=== PATIENT | female | born 2005 | race Hispanic/Latino ===

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

== ENCOUNTER 2024-02-25 14:03 | Emergency (ER) | payer OTHER ==
[~2024-02-25] VITALS: Ht 170.2 cm; Wt 108.4 kg
[~2024-02-25 14:03] MED LIST changes: +CLIN-141 PO; +IBUP-2077 PO
[2024-02-25 15:44] LABS: APPEARANCE,URINE CLOUDY (CLEAR); BILIRUBIN,URINE NEGATIVE (NEGATIVE); COLOR,URINE YELLOW (YELLOW); GLUCOSE, URINE (UA) NEGATIVE (NEGATIVE); KETONES,URINE NEGATIVE (NEGATIVE); LEUKOCYTE ESTERASE ,URINE NEGATIVE Leu/uL (NEGATIVE); NITRATE,URINE NEGATIVE (NEGATIVE); OCCULT BLOOD,URINE LARGE (NEGATIVE); PH,URINE 5.5 (5.0-8.0); PROTEIN,URINE 20 mg/dL (NEGATIVE); UROBILINOGEN,URINE 0.2 mg/dL (0.2-1.0)
[2024-02-25 15:51] LABS: ADD UA MICROSCOPIC YES
[2024-02-25 15:53] LABS: HCG,QUALITATIVE URINE NEGATIVE (NEGATIVE)
[2024-02-25 15:56] LABS: BACTERIA,URINE RARE /HPF (None Seen); MUCUS,URINE RARE LPF (None Seen); RBC,URINE TNTC /HPF (0-1); SQUAMOUS EPITHELIAL CELL,UR RARE /HPF (0-2); UNCLASSIFIED CRYSTAL 3 /HPF (None Seen)
[2024-02-25 16:19] LABS: BASOPHILS # (AUTO) 0.05 K/uL (0.00-0.20); BASOPHILS % (AUTO) 0.5 % (0.0-5.0); EOSINOPHILS # (AUTO) 0.17 K/uL (0.00-0.70); EOSINOPHILS % (AUTO) 1.7 % (0.0-8.0); HEMATOCRIT 36.1 % (36-48); IMMATURE GRANULOCYTE ABSOLUTE 0.04 K/uL (0-1); LYMPHOCYTES # (AUTO) 2.3 K/uL (1.0-4.8); LYMPHOCYTES % (AUTO) 23.7 % (21.0-51.0); MEAN CORPUSCULAR HEMOGLOBIN 25.4 pg (27.0-33.0); MEAN CORPUSCULAR HGB CONC 32.1 g/dL (32.0-36.0); MEAN CORPUSCULAR VOLUME 79.2 fL (80-100); MONOCYTES # (AUTO) 0.5 K/uL (0.1-1.0); MONOCYTES % (AUTO) 5.4 % (3.0-13.0); NEUTROPHILS # (AUTO) 6.8 K/uL (1.8-7.7); NEUTROPHILS % (AUTO) 68.3 % (40.0-77.0); PLATELET COUNT (AUTO) 329 K/uL (130-400); RED BLOOD CELL COUNT(AUTO) 4.56 MIL/uL (4.00-5.50); RED CELL DISTRIBUTION WIDTH 14.6 % (11.0-15.5); WHITE BLOOD COUNT (AUTO) 9.9 K/uL (4.8-10.8)
[2024-02-25 16:29] LABS: CREATININE 0.7 mg/dL (0.5-1.0); POTASSIUM 3.6 mmol/L (3.5-5.1)
[2024-02-25 18:13] VITALS: BP 134/76; PULSE 71; RESP 18; O2SAT 99
[2024-02-25] MEDS ORDERED: IBUP-2070 PO (18:14)
== END 2024-02-25 18:13 | disposition home or self-care (01) ==
LOC: EDH 14:03
DX: N94.6 Dysmenorrhea, unspecified (principal); Z79.899 Other long term (current) drug therapy; Z98.890 Other specified postprocedural states
CPT/HCPCS: 36415; 76856; 80048; 81001; 81025; 83735; 85025

== ENCOUNTER 2024-09-27 21:06 | Emergency (ER) | payer SELFPAY ==
[~2024-09-27] VITALS: Ht 170.2 cm; Wt 110.9 kg
[2024-09-27 21:24] LABS: BASOPHILS # (AUTO) 0.06 K/uL (0.00-0.20); BASOPHILS % (AUTO) 0.6 % (0.0-5.0); EOSINOPHILS # (AUTO) 0.22 K/uL (0.00-0.70); EOSINOPHILS % (AUTO) 2.2 % (0.0-8.0); HEMATOCRIT 34.1 % (36-48); IMMATURE GRANULOCYTE ABSOLUTE 0.03 K/uL (0-1); LYMPHOCYTES # (AUTO) 3.4 K/uL (1.0-4.8); LYMPHOCYTES % (AUTO) 34.4 % (21.0-51.0); MEAN CORPUSCULAR HEMOGLOBIN 25.7 pg (27.0-33.0); MEAN CORPUSCULAR HGB CONC 32.8 g/dL (32.0-36.0); MEAN CORPUSCULAR VOLUME 78.2 fL (80-100); MONOCYTES # (AUTO) 0.7 K/uL (0.1-1.0); NEUTROPHILS # (AUTO) 5.4 K/uL (1.8-7.7); NEUTROPHILS % (AUTO) 55.5 % (40.0-77.0); PLATELET COUNT (AUTO) 338 K/uL (130-400); RED BLOOD CELL COUNT(AUTO) 4.36 MIL/uL (4.00-5.50); RED CELL DISTRIBUTION WIDTH 13.3 % (11.0-15.5); WHITE BLOOD COUNT (AUTO) 9.8 K/uL (4.8-10.8)
[2024-09-27 21:33] LABS: CREATININE 0.8 mg/dL (0.5-1.0); POTASSIUM 3.4 mmol/L (3.5-5.1)
[2024-09-27 21:38] LABS: INR 0.98 (0.85-1.15); PROTHROMBIN TIME 10.6 SEC (9.6-11.6)
[2024-09-27 21:39] LABS: PARTIAL THROMBOPLASTIN TIME 29.6 SEC (26.3-35.5)
--- NOTE | 2024-09-27 21:42 | ERN ---
ED Note History of Present Illness Stated Complaint: CHEST PAIN Chief Complaint: Chest Pain Time Seen by MD: 21:17 Time Seen by Midlevel: 21:17 Dictation: Patient is a 19-year-old female with no past medical history who presents to the emergency department with complaints of left-sided chest pain onset 8:00 p.m.. Patient reports she has been having on and off episodes for two months. Denies any nausea, vomiting, diarrhea. Patient reports pain worse with movement. Allergies: Coded Allergies: No Known Allergies (Unverified Allergy, Unknown, 05/18/18) Home Meds Active Scripts Ibuprofen (Ibuprofen) 600 Mg Tablet, 600 MG PO Q6H PRN for PAIN for 3 Days, #12 TAB 0 Refills Prov:SHAYAN CARNES NP 02/25/24 Ibuprofen (Ibuprofen 800 mg Tab) 800 Mg Tab, 800 MG PO Q8H PRN for fever or pain, #30 TAB 0 Refills Prov:DYLAN DOYLE NP 12/04/23 Clindamycin HCl (Clindamycin HCl) 300 Mg Capsule, 1 CAP PO QID for 10 Days, #40 CAP 0 Refills Prov:DYLAN DOYLE DIAGNOSTIC CARDIAC SONOGRAPHER 12/04/23 Ibuprofen (Ibuprofen) 600 Mg Tablet, 600 MG PO Q6H PRN for PAIN, #15 TAB Prov:MONSERRAT ROSENTHAL 03/07/23 Sulfamethoxazole/Trimethoprim (Bactrim Ds Tablet) 1 Each Tablet, 1 TAB PO BID for 7 Days, #14 TAB 0 Refills Prov:MONSERRAT ROSENTHAL 03/07/23 Dexamethasone (Maxidex) 5 Ml Drops.susp, 5 ML OP BID for 7 Days, #30 DROP Prov:ZEYNEP GOLDBERG MD 02/22/22 Past Medical History Past Medical History: No Pertinent History Surgical History: Other Surgical History Other: RT OVARIAN SX Family History: Negative Social History: Negative, Lives with family History: Not Applicable LMP: Sep 20, 2024 RN Note Reviewed/Agreed w/PFSH: Yes Review of System Dictation Constitutional: Negative for fever,chills, and weight loss Eyes: Negative for injury, pain,redness, and discharge ENT: Negative for injury,pain or swelling Cardiovascular: Negative for chest pain, palpitations, and edema Respiratory: Negative for shortness of breath, cough, and wheezing, Abdomen/GI: Negative for abdominal pain, nausea, vomiting, diarrhea, and constipation Back: Negative for injury and pain : Negative for injury, bleeding and discharge MS/Extremity: Negative for injury and deformity Skin: Negative for rash, and discoloration Neuro: Negative for headache, weakness, numbness, tingling, and seizure Psych: Negative for suicide ideation, homicidal ideation, and hallucinations Initial Vital Sign VS Vital Signs Date Time Temp Pulse Resp B/P (MAP) Pulse Ox O2 Delivery O2 Flow Rate FiO2 09/27/24 21:07 98.8 74 20 124/92 98 Room Air 09/27/24 21:49 0 21 Physical Exam Dictation Vital Signs reviewed General Appearance: Alert, oriented x 3, no acute distress, well developed, nourished. Head and Face: non-traumatic. Eyes: PERRL, pink conjunctivas, eyelid no trauma, anterior chamber with arcus senilis. Ears: Pinnas intact and no signs of trauma or erythema ear canals clear and no discharge TM no erythema Nose: No discharge, no bleeding. Oropharynx: Mouth normal, tongue pink. pharynx clear,no erythema, tonsils no exudates, no abscesses noted, mucous membrane moist Neck: Supple, non-tender, no thyromegaly, no masses, no JVD, no bruits Breast:Deferred Chest: Tenderness to left chest, no crepitus, no paradoxical movement, no retractions Lungs:Clear, well-ventilated, symmetric, no rales, no wheezing, no rhonchi, no stridor, good breath sounds bilaterally Heart: Regular rate, regular rhythm, no murmur, no gallops Vascular: no peripheral edema, Abdomen: Soft, positive bowel sounds, nondistended, no guarding, nontender, no rebound, no masses no hepatomegaly, no splenomegaly, no Jenkins's sign, no hernias. Rectal: Deferred Genital: Deferred Neurological: Normal speech, motor function intact, sensory function intact Musculoskeletal: Neck nontender, full range of motion, back nontender, full range of motion, Extremities: nontender, full range of motion Skin: Color pink, dry, no turgor, no rash, no lacerations, no abrasions, no contusions. Lymphatic: Deferred Results (Laboratory/Radiology) Laboratory/Radiology Laboratory Tests Test 09/27/24 21:16 09/27/24 21:40 09/27/24 22:19 White Blood Count 9.8 K/uL (4.8-10.8) Red Blood Count 4.36 MIL/uL (4.00-5.50) Hemoglobin 11.2 g/dL (12.0-16.0) L Hematocrit 34.1 % (36-48) L Mean Corpuscular Volume 78.2 fL (80-100) L Mean Corpuscular Hemoglobin 25.7 pg (27.0-33.0) L Mean Corpuscular Hemoglobin Concent 32.8 g/dL (32.0-36.0) Red Cell Distribution Width 13.3 % (11.0-15.5) Platelet Count 338 K/uL (130-400) Mean Platelet Volume 8.9 fL (7.5-10.5) Immature Granulocyte % (Auto) 0.3 % (0-1) Neutrophils (%) (Auto) 55.5 % (40.0-77.0) Lymphocytes (%) (Auto) 34.4 % (21.0-51.0) Monocytes (%) (Auto) 7.0 % (3.0-13.0) Eosinophils (%) (Auto) 2.2 % (0.0-8.0) Basophils (%) (Auto) 0.6 % (0.0-5.0) Neutrophils # (Auto) 5.4 K/uL (1.8-7.7) Lymphocytes # (Auto) 3.4 K/uL (1.0-4.8) Monocytes # (Auto) 0.7 K/uL (0.1-1.0) Eosinophils # (Auto) 0.22 K/uL (0.00-0.70) Basophils # (Auto) 0.06 K/uL (0.00-0.20) Absolute Immature Granulocyte (auto 0.03 K/uL (0-1) Nucleated Red Blood Cells 0.0 % (0.0-0.19) Prothrombin Time 10.6 SEC (9.6-11.6) Prothromb Time International Ratio 0.98 (0.85-1.15) Activated Partial Thromboplast Time 29.6 SEC (26.3-35.5) Sodium Level 137 mmol/L (136-145) Potassium Level 3.4 mmol/L (3.5-5.1) L Chloride Level 101 mmol/L (101-111) Carbon Dioxide Level 28 mmol/L (21-32) Blood Urea Nitrogen 10 mg/dL (7-18) Creatinine 0.8 mg/dL (0.5-1.0) Glomerular Filtration Rate Calc 108 mL/min (>90) Random Glucose 94 mg/dL (70-105) Total Calcium 8.6 mg/dL (8.5-10.1) Total Creatine Kinase 62 U/L (21-232) Troponin I High Sensitivity < 4 ng/L (4-50) L B-Type Natriuretic Peptide 24 pg/mL (0-100) Troponin I < 0.05 ng/mL (0.00-0.05) Urine Color LIGHT-YELLOW (YELLOW) Urine Appearance CLEAR (CLEAR) Urine pH 6.5 (5.0-8.0) Urine Specific [place] 1.023 (1.001-1.031) Urine Protein NEGATIVE mg/dL (NEGATIVE) Urine Glucose (UA) NEGATIVE mg/dL (NEGATIVE) Urine Ketones NEGATIVE mg/dL (NEGATIVE) Urine Occult Blood NEGATIVE (NEGATIVE) Urine Nitrate NEGATIVE (NEGATIVE) Urine Bilirubin NEGATIVE mg/dL (NEGATIVE) Urine Urobilinogen 0.2 mg/dL (0.2-1.0) Urine Leukocyte Esterase NEGATIVE Sixto/uL Urine HCG, Qualitative NEGATIVE (NEGATIVE) REASON: CHEST PAIN ORDERING PHYSICIAN: ESCOBAR TROTTER MD PROCEDURE: CXR1VW - CHEST 1VW CHEST 1VW HISTORY: Chest pain COMPARISON: None FINDINGS: A frontal projection of the chest was obtained. No acute pulmonary infiltrates is seen. The heart is normal in size. Prominent interstitial markings are seen. No evidence of aortic calcification is seen. IMPRESSION: 1. No acute pulmonary infiltrate is seen. Labs Reviewed?: Yes EKG: (+) NSR, (+) rhythm (Sinus rhythm) EKG Comment: EKG 09/27/20242109 ventricular rate 72, regular rate and rhythm, normal sinus rhythm, no STEMI., abnormal T wave anterior leads ED Course ED Course Orders Procedure Category Date Status Time Vital Signs Per CPOE 09/27/24 Transmitted Routine 21:08 B-Type Natriuretic LAB 09/27/24 Complete Peptide 21:08 Chest 1vw RAD 09/27/24 Resulted 21:08 12 Lead Ekg Tracing- EKG 09/27/24 Logged Technical 21:08 Oxygen By Nc/Pulse Ox CPOE 09/27/24 Transmitted 21:08 Maintain Iv CPOE 09/27/24 Transmitted 21:08 Iv Insertion CPOE 09/27/24 Transmitted 21:08 Cardiac Monitoring CPOE 09/27/24 Transmitted 21:08 Pulse Oximetry With CPOE 09/27/24 Transmitted Vs And Prn 21:08 Cbc With Differential LAB 09/27/24 Complete 21:08 Activity: Br W/Brp CPOE 09/27/24 Transmitted With Assist 21:08 Creatine Kinase, Total LAB 09/27/24 Complete 21:08 Urinalysis Profile LAB 09/27/24 Complete 21:08 Troponin Poc Order LAB 09/27/24 Complete Only 21:08 Bedside Troponin-I LAB.ER 09/27/24 Complete (Poc) 21:08 Basic Metabolic Panel LAB 09/27/24 Complete 21:08 Pt And Ptt LAB 09/27/24 Complete 21:08 Troponin I High LAB 09/27/24 Complete Sensitivity 21:08 ,Urine Test LAB 09/27/24 Complete 21:08 Acetaminophen 500mg PHA 09/27/24 Complete Tab (Tylenol 500mg T 22:00 Ketorolac 60mg/2ml PHA 09/27/24 Complete (Toradol 60mg/2ml) 23:30 Current Medications Medications (Trade) Dose Ordered Sig/Lorrie Route PRN Reason Start Time Stop Time Status Last Admin Dose Admin Acetaminophen (TYLenol 500MG TAB) 1,000 mg ONCE ONCE PO 09/27/24 22:00 09/27/24 22:01 DC 09/27/24 22:06 Ketorolac Tromethamine (toRADol 60MG/ 2ML) 60 mg ONCE ONCE IM 09/27/24 23:30 09/27/24 23:31 DC 09/27/24 23:52 Vital Signs Date Time Temp Pulse Resp B/P (MAP) Pulse Ox O2 Delivery O2 Flow Rate FiO2 09/28/24 00:06 98.2 61 20 124/79 10 Room Air* 0 09/27/24 21:49 98.2 71 20 135/92 10 Room Air* 0 09/27/24 21:07 98.8 74 20 124/92 98 Room Air HEART Score Response (Comments) Value History: Low suspicion (0) 0 EKG: Normal 0 Age: < 45yrs (0) 0 Risk Factors: No known risk factors (0) 0 Initial Troponin: Normal limit (0) 0 HEART Score Risk: Low Risk for MACE (1-3) Total 0 Medical Decision Making MDM Patient is a 19-year-old female with no past medical history who presents to the emergency department with complaints of left-sided chest pain onset 8:00 p.m.. Patient reports she has been having on and off episodes for two months. Denies any nausea, vomiting, diarrhea. Patient reports pain worse with movement. See showed no leukocytosis, mild microcytic anemia, chemistry showed mild hypokalemia, negative troponins x2. Chest x-ray unremarkable. Patient reported relieved in pain with medication. Will be discharged to follow up with primary doctor. Differential diagnosis: ACS, anxiety, costochondritis, electrolyte imbalance, tachyarrhythmia Need for hospitalization: Patient does not meet criteria for hospitalization. There are no social concerns with this patient. DX & DISP Disposition: Discharge Departure Impression: Primary Impression: Costochondritis Additional Impressions: Chest pain with low risk for cardiac etiology, Hypokalemia, Anemia Condition: Stable Additional Instructions: FOLLOW-UP WITH PRIMARY CARE PROVIDER IN 1 TO 2 DAYS. TAKE MEDICATIONS DIRECTED HERE IN THE EMERGENCY ROOM. OKAY TO CONTINUE HOME MEDICATIONS UNLESS OTHERWISE DISCUSSED DURING YOUR VISIT IN THE EMERGENCY ROOM TODAY. RETURN TO YOUR NEAREST EMERGENCY ROOM IF SYMPTOMS WORSEN OR IF THERE IS NO IMPROVEMENT. CALL 911 IF YOU NEED IMMEDIATE ASSISTANCE. TAKE TYLENOL OR MOTRIN [id number] NEEDED AND IF NO CONTRAINDICATIONS ARE PRESENT. INCREASE ORAL HYDRATION. A WOUND CULTURE OR URINE CULTURE WAS ORDERED HERE IN THE EMERGENCY ROOM DEPARTMENT PLEASE FOLLOW-UP WITH PRIMARY CARE PROVIDER AND ADVISE THEM TO GET REPEAT PORTS FROM OUR FACILITY. IF YOU HAD ANY CHELI WRAP/SPLINTS THAT WERE APPLIED HERE, PLEASE DO NOT REMOVE THEM UNTIL YOU SEE YOUR PRIMARY CARE OR SPECIALTY. Referrals: SELF,REFERRAL (PCP) Time of Disposition: 00:19 I have reviewed the case, and I agree with, Diagnosis and Plan DARRYL NAPIER Sep 27, 2024 21:42
[2024-09-27 21:50] LABS: B-TYPE NATRIURETIC PEPTIDE 24 pg/mL (0-100)
[2024-09-27] MEDS: acetaMINOPHEN 500 MG TABLET PO ONE (22:06)
[2024-09-27 22:46] LABS: APPEARANCE,URINE CLEAR (CLEAR); BILIRUBIN,URINE NEGATIVE (NEGATIVE); COLOR,URINE LIGHT-YELLOW (YELLOW); GLUCOSE, URINE (UA) NEGATIVE (NEGATIVE); KETONES,URINE NEGATIVE (NEGATIVE); LEUKOCYTE ESTERASE ,URINE NEGATIVE Leu/uL (NEGATIVE); NITRATE,URINE NEGATIVE (NEGATIVE); OCCULT BLOOD,URINE NEGATIVE (NEGATIVE); PH,URINE 6.5 (5.0-8.0); PROTEIN,URINE NEGATIVE (NEGATIVE); UROBILINOGEN,URINE 0.2 mg/dL (0.2-1.0)
[2024-09-27 22:51] LABS: HCG,QUALITATIVE URINE NEGATIVE (NEGATIVE)
[2024-09-27 22:57] LABS: ADD UA MICROSCOPIC NO
[2024-09-27] MEDS: ketOROlac 60 MG VIAL (30MG/ML) IM ONE (23:52)
[2024-09-28 00:06] VITALS: BP 124/79; PULSE 61; RESP 20; TEMP 98.2; O2SAT 10
--- NOTE | 2024-09-28 00:17 | HMCIMG ---
CHEST 1VW HISTORY: Chest pain COMPARISON: None FINDINGS: A frontal projection of the chest was obtained. No acute pulmonary infiltrates is seen. The heart is normal in size. Prominent interstitial markings are seen. No evidence of aortic calcification is seen. IMPRESSION: 1. No acute pulmonary infiltrate is seen.
--- NOTE | 2024-09-28 15:09 | EKG ---
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
== END 2024-09-28 00:28 | disposition home or self-care (01) ==
LOC: EDH 21:06
DX: M94.0 Chondrocostal junction syndrome [Tietze] (principal); D64.9 Anemia, unspecified; E87.6 Hypokalemia; Z79.899 Other long term (current) drug therapy; Z98.890 Other specified postprocedural states
CPT/HCPCS: 99285; 71045; 82550; 84484 ×2; 80048; 83880; 85025; 85610; 85730; 81003; 81025; 36415; 96372; 93005; J1885

== ENCOUNTER 2025-03-01 12:37 | Emergency (ER) | payer SELFPAY ==
[~2025-03-01] VITALS: Ht 165.1 cm; Wt 113.4 kg
[2025-03-01 13:36] LABS: APPEARANCE,URINE CLEAR (CLEAR); BILIRUBIN,URINE NEGATIVE (NEGATIVE); COLOR,URINE YELLOW (YELLOW); GLUCOSE, URINE (UA) NEGATIVE (NEGATIVE); KETONES,URINE NEGATIVE (NEGATIVE); LEUKOCYTE ESTERASE ,URINE NEGATIVE Leu/uL (NEGATIVE); NITRATE,URINE NEGATIVE (NEGATIVE); OCCULT BLOOD,URINE NEGATIVE (NEGATIVE); PH,URINE 5.5 (5.0-8.0); PROTEIN,URINE 20 mg/dL (NEGATIVE); UROBILINOGEN,URINE 0.2 mg/dL (0.2-1.0)
--- NOTE | 2025-03-01 13:44 | NUR ---
PATIENT IN ER LOBBY. PENDING GFR & TEST RESULTS, IV SITE, & CONSENT FOR CT EXAM.
[2025-03-01 13:52] LABS: ADD UA MICROSCOPIC YES; MUCUS,URINE FEW LPF (None Seen); SQUAMOUS EPITHELIAL CELL,UR FEW /HPF (0-2)
[2025-03-01 13:58] LABS: BASOPHILS # (AUTO) 0.04 K/uL (0.00-0.20); BASOPHILS % (AUTO) 0.3 % (0.0-5.0); EOSINOPHILS # (AUTO) 0.12 K/uL (0.00-0.70); EOSINOPHILS % (AUTO) 0.8 % (0.0-8.0); HEMATOCRIT 37.9 % (36-48); IMMATURE GRANULOCYTE ABSOLUTE 0.07 K/uL (0-1); LYMPHOCYTES # (AUTO) 1.5 K/uL (1.0-4.8); LYMPHOCYTES % (AUTO) 9.9 % (21.0-51.0); MEAN CORPUSCULAR HGB CONC 31.7 g/dL (32.0-36.0); MEAN CORPUSCULAR VOLUME 82.2 fL (80-100); MONOCYTES # (AUTO) 0.8 K/uL (0.1-1.0); MONOCYTES % (AUTO) 5.1 % (3.0-13.0); NEUTROPHILS # (AUTO) 12.2 K/uL (1.8-7.7); NEUTROPHILS % (AUTO) 83.4 % (40.0-77.0); PLATELET COUNT (AUTO) 312 K/uL (130-400); RED BLOOD CELL COUNT(AUTO) 4.61 MIL/uL (4.00-5.50); RED CELL DISTRIBUTION WIDTH 14.7 % (11.0-15.5); WHITE BLOOD COUNT (AUTO) 14.6 K/uL (4.8-10.8)
[2025-03-01 14:18] LABS: ALBUMIN 3.7 g/dL (3.5-5.0); BILIRUBIN,DIRECT 0.1 mg/dL (0.0-0.3); BILIRUBIN,TOTAL 0.5 mg/dL (0.2-1.0); CREATININE 0.8 mg/dL (0.5-1.0); MAGNESIUM 1.9 mg/dL (1.80-2.40); POTASSIUM 3.9 mmol/L (3.5-5.1)
[2025-03-01] MEDS ORDERED: IOHEXOL-350 75 ML VIAL IV ONE ×2 (14:48→15:05)
--- NOTE | 2025-03-01 15:37 | HMCIMG ---
CT ABDOMEN WITH CONTRAST. CT PELVIS WITH CONTRAST INDICATION: Left lower abdominal pain TECHNIQUE: Routine transaxial images using 5 mm slice thickness were obtained after the intravenous infusion of 75 mL of Omnipaque 350 without adverse effects. Oral contrast was not administered. Rectal contrast was not administered. Coronal and sagittal reformatted images acquired for interpretation. CT was performed with one or more of the following dose reduction techniques: Automated exposure control, adjustment of the mA and/or kV according to patient size, or use of iterative reconstruction technique. COMPARISON: None FINDINGS: ABDOMEN: Heart size is normal. Visible lung bases are clear. The liver is normal in size and smooth in contour without lesions or biliary duct dilation. Diffuse low attenuation of the liver parenchyma suggests fatty change. The spleen is normal in size without lesions. The gallbladder appears normal. The pancreas appears normal without pancreatic duct dilation. The adrenal glands appear normal. Both kidneys appear unremarkable. Cortical nephrograms are symmetric and normal in appearance bilaterally. No evidence for intra-abdominal free air or organized fluid collection. No retrocrural, intraabdominal, or retroperitoneal lymphadenopathy identified. No aortic aneurysmal dilation or dissection identified. PELVIS: No evidence for free air or organized pelvic fluid collection. No significant pelvic adenopathy detected. Moderate rectosigmoid colonic stool burden. Terminal ileum appears normal. The appendix appears normal. The urinary bladder appears unremarkable. Visible osseous structures are intact. IMPRESSION: Hepatic steatosis and moderate rectosigmoid colonic stool burden, without evidence for any acute intra-abdominal or pelvic process, including no evidence for diverticulitis or colitis.
--- NOTE | 2025-03-01 15:43 | HMCIMG ---
ULTRASOUND OF THE PELVIS ULTRASOUND ABD VASCULAR LIMITED INDICATION: Pelvic pain COMPARISONS: None TECHNIQUE: Transabdominal real-time sonographic images were acquired earlier, and subsequently made available for review. FINDINGS: The uterus measures 8.2 x 2.2 x 4.4 cm. The uterus is normal in echotexture and contour. The endometrial thickness measures 2.0 mm. The slightly follicular right ovary measures 3.4 x 2.1 x 2.4 cm. The right ovary is normal in size, shape and echogenicity. No right adnexal masses demonstrated. Color Doppler flow is normal throughout the right ovary. Spectral Doppler analysis demonstrates a normal waveform pattern. The left ovary is surgically absent. No free pelvic fluid demonstrated. IMPRESSION: No acute pelvic abnormality noted.
[2025-03-01] MEDS ORDERED: POLY17PO4 PO (15:56)
--- NOTE | 2025-03-01 15:58 | ERN ---
General Chief Complaint: Pelvic Pain Stated Complaint: 2 MONTHS WITHOUT A PERIOD Time Seen by MD: 12:39 Time Seen by Midlevel: 12:39 Source: patient History of Present Illness Initial Comments The patient is a morbidly obese 19-year-old female presenting to the emergency department for evaluation of amenorrhea. Patient states she was not had her period in two months. She reports pain to her left lower quadrant area. Denies any other symptoms. Patient has not seen her primary care doctor or OBGYN for this issue. Allergies: Coded Allergies: No Known Allergies (Unverified Allergy, Unknown, 05/18/18) Home Meds Active Scripts Polyethylene Glycol 3350 (Miralax) 17 Gram Powd.pack, 17 GM PO DAILY for constipation, #20 PACKET 0 Refills Prov:JORGE CARBONE PA 03/01/25 Ibuprofen (Ibuprofen) 600 Mg Tablet, 600 MG PO Q6H PRN for PAIN for 3 Days, #12 TAB 0 Refills Prov:SHAYAN CARNES [employer] 02/25/24 Ibuprofen (Ibuprofen 800 mg Tab) 800 Mg Tab, 800 MG PO Q8H PRN for fever or pain, #30 TAB 0 Refills Prov:DYLAN DOYLE [employer] 12/04/23 Clindamycin HCl (Clindamycin HCl) 300 Mg Capsule, 1 CAP PO QID for 10 Days, #40 CAP 0 Refills Prov:DYLAN DOYLE [employer] 12/04/23 Ibuprofen (Ibuprofen) 600 Mg Tablet, 600 MG PO Q6H PRN for PAIN, #15 TAB Prov:MONSERRAT ROSENTHAL 03/07/23 Sulfamethoxazole/Trimethoprim (Bactrim Ds Tablet) 1 Each Tablet, 1 TAB PO BID for 7 Days, #14 TAB 0 Refills Prov:MONSERRAT ROSENTHAL 03/07/23 Dexamethasone (Maxidex) 5 Ml Drops.susp, 5 ML OP BID for 7 Days, #30 DROP Prov:ZEYNEP GOLDBERG MD 02/22/22 Past Medical History Past Medical History: No Pertinent History Past Surgical History: Other Surgical History Other: RT OVARIAN SX Family History Family History: Negative Social History Social History: Negative, Lives with family Female( History) History: Not Applicable ROS Dictation CONSTITUTIONAL: Negative except for HPI HEAD/FACE: Negative except for HPI EENT: Negative except for HPI RESPIRATORY: Negative except for HPI GASTROINTESTINAL/ABDOMINAL: Negative except for HPI GENITOURINARY: Negative except for HPI MUSCULOSKELETAL: Negative except for HPI INTEGUMENTARY: Negative except for HPI NEUROLOGICAL/PSYCH: Negative except for HPI HEMATOLOGIC/LYMPHATIC: Negative except for HPI All Systems Negative, Except as noted above. 13 point review of systems assessed and all negative except for above. Physical Exam Physical Exam Dictation Vital Signs reviewed General Appearance: Alert, oriented x 3, no acute distress, morbidly obese Head and Face: non-traumatic. Eyes: PERRL, pink conjunctivas, eyelid no trauma, anterior chamber with arcus senilis. Ears: Pinnas intact and no signs of trauma or erythema ear canals clear and no discharge TM no erythema Nose: No discharge, no bleeding. Oropharynx: Mouth normal, tongue pink, pharynx clear,no erythema, tonsils no exudates, no abscesses noted, mucous membrane moist Neck: Supple, non-tender, no thyromegaly, no masses, no JVD, no bruits Breast:Deferred Chest:No tenderness, no crepitus, no paradoxical movement, no retractions Lungs:Clear, well-ventilated, symmetric, no rales, no wheezing, no rhonchi, no stridor, good breath sounds bilaterally Heart: Tachycardic, regular rhythm, no murmur, no gallops Vascular: no peripheral edema, Abdomen: Soft, positive bowel sounds, nondistended, no guarding, Left lower quadrant abdominal tenderness, no rebound, no masses no hepatomegaly, no splenomegaly, no Jenkins's sign, no hernias. Rectal: Deferred Genital: Deferred Neurological: Normal speech, motor function intact, sensory function intact Musculoskeletal: Neck nontender, full range of motion, back nontender, full range of motion, Extremities: nontender, full range of motion Skin: Color pink, dry, no turgor, no rash, no lacerations, no abrasions, no contusions. Lymphatic: Deferred Results Laboratory and Microbiology Lab and Micro Result Laboratory Tests Test 03/01/25 13:27 03/01/25 13:43 Urine Color YELLOW (YELLOW) Urine Appearance CLEAR (CLEAR) Urine pH 5.5 (5.0-8.0) Urine Specific [place] 1.035 (1.001-1.031) Urine Protein 20 mg/dL (NEGATIVE) H Urine Glucose (UA) NEGATIVE mg/dL (NEGATIVE) Urine Ketones NEGATIVE mg/dL (NEGATIVE) Urine Occult Blood NEGATIVE (NEGATIVE) Urine Nitrate NEGATIVE (NEGATIVE) Urine Bilirubin NEGATIVE mg/dL (NEGATIVE) Urine Urobilinogen 0.2 mg/dL (0.2-1.0) Urine Leukocyte Esterase NEGATIVE [place]/uL Urine RBC 2-5 /HPF (0-1) H Urine WBC 2-5 /HPF (0-1) H Urine Squamous Epithelial Cells FEW /HPF (0-2) Urine Bacteria None /HPF (None Seen) White Blood Count 14.6 K/uL (4.8-10.8) H Red Blood Count 4.61 MIL/uL (4.00-5.50) Hemoglobin 12.0 g/dL (12.0-16.0) Hematocrit 37.9 % (36-48) Mean Corpuscular Volume 82.2 fL (80-100) Mean Corpuscular Hemoglobin 26.0 pg (27.0-33.0) L Mean Corpuscular Hemoglobin Concent 31.7 g/dL (32.0-36.0) L Red Cell Distribution Width 14.7 % (11.0-15.5) Platelet Count 312 K/uL (130-400) Mean Platelet Volume 9.0 fL (7.5-10.5) Immature Granulocyte % (Auto) 0.5 % (0-1) Neutrophils (%) (Auto) 83.4 % (40.0-77.0) H Lymphocytes (%) (Auto) 9.9 % (21.0-51.0) L Monocytes (%) (Auto) 5.1 % (3.0-13.0) Eosinophils (%) (Auto) 0.8 % (0.0-8.0) Basophils (%) (Auto) 0.3 % (0.0-5.0) Neutrophils # (Auto) 12.2 K/uL (1.8-7.7) H Lymphocytes # (Auto) 1.5 K/uL (1.0-4.8) Monocytes # (Auto) 0.8 K/uL (0.1-1.0) Eosinophils # (Auto) 0.12 K/uL (0.00-0.70) Basophils # (Auto) 0.04 K/uL (0.00-0.20) Absolute Immature Granulocyte (auto 0.07 K/uL (0-1) Nucleated Red Blood Cells 0.0 % (0.0-0.19) White Cell Morphology Comment See comments Sodium Level 143 mmol/L (136-145) Potassium Level 3.9 mmol/L (3.5-5.1) Chloride Level 106 mmol/L (101-111) Carbon Dioxide Level 27 mmol/L (21-32) Blood Urea Nitrogen 12 mg/dL (7-18) Creatinine 0.8 mg/dL (0.5-1.0) Glomerular Filtration Rate Calc 108 mL/min (>90) Random Glucose 127 mg/dL (70-105) H Lactic Acid Level 1.7 mmol/L (0.8-2.5) Total Calcium 9.1 mg/dL (8.5-10.1) Magnesium Level 1.90 mg/dL (1.80-2.40) Total Bilirubin 0.5 mg/dL (0.2-1.0) Direct Bilirubin 0.1 mg/dL (0.0-0.3) Aspartate Amino Transf (AST/SGOT) 19 U/L (10-37) Alanine Aminotransferase (ALT/SGPT) 37 U/L (12-78) Alkaline Phosphatase 95 U/L (50-136) Total Protein 8.0 g/dL (6.0-8.3) Albumin 3.7 g/dL (3.5-5.0) Human Chorionic Gonadotropin, Quant 0 mIU/mL (0-5) Labs Reviewed?: Yes MDM MDM: The patient is a morbidly obese 19-year-old female presenting to the emergency department for evaluation of amenorrhea. Patient states she was not had her period in two months. She reports pain to her left lower quadrant area. Denies any other symptoms. Patient has not seen her primary care doctor or OBGYN for this issue. On physical examination patient is in no acute distress. She was morbidly obese. Her initial vital signs reveal a temperature of 98.2 with a heart rate of 125 beats per minute. Blood pressure is 144/93. She was some mild left lower quadrant abdominal tenderness with no rebound or guarding. Abdominal workup was obtained. CBC shows leukocytosis with a left shift. No anemia or thrombocytopenia noted. Chemistries unremarkable. test is negative. Urinalysis does not show any evidence of infection. Pelvic ultrasound reveals an absent left ovary so no evidence of ovarian torsion. CT scan reveals moderate amount of stool burden. It appears patient's symptoms are a result of her constipation. There was no evidence of ovarian torsion, pyelonephritis, urinary tract infection, or at this time. Patient will be discharged home with supportive management. Differential diagnosis: Ovarian torsion, ectopic , constipation, urinary tract infection, pyelonephritis There are no social concerns with this patient. Prescription drug management Prescriptions will include: MiraLax Medical management and examination interpretation discussions were had by me with other qualified healthcare professionals as indicated for the patient's care. ED Course Orders Procedure Category Date Status Time Cbc With Differential LAB 03/01/25 Complete 13:12 Basic Metabolic Panel LAB 03/01/25 Complete 13:12 Hcg,Quantitative LAB 03/01/25 Complete 13:12 Urinalysis Profile LAB 03/01/25 Complete 13:12 Lactic Acid LAB 03/01/25 Complete 13:12 Magnesium LAB 03/01/25 Complete 13:12 Hepatic Function Panel LAB 03/01/25 Complete 13:12 Ct Abdomen/Pelvis CT 03/01/25 Resulted W/Contrast 13:28 Iohexol (Omnipaque) PHA 03/01/25 Complete 14:48 Iohexol (Omnipaque) PHA 03/01/25 Complete 15:05 Us Pelvic Non-Ob Comp US 03/01/25 Resulted 13:25 Current Medications Medications (Trade) Dose Ordered Sig/Lorrie Route PRN Reason Start Time Stop Time Status Last Admin Dose Admin Iohexol (Omnipaque) 75 ml STK-MED ONCE IV 03/01/25 14:48 03/01/25 14:49 DC Iohexol (Omnipaque) 75 ml STK-MED ONCE IV 03/01/25 15:05 03/01/25 15:05 DC Vital Signs Date Time Temp Pulse Resp B/P (MAP) Pulse Ox O2 Delivery O2 Flow Rate FiO2 03/01/25 16:11 98.4 98 18 124/71 99 Room Air* 0 21 03/01/25 14:10 98.4 137 21 115/59 99 Room Air* 0 21 03/01/25 13:12 98.2 125 16 144/93 98 Room Air 0 03/01/25 13:10 98.2 125 16 144/93 98 Room Air* 0 21 [place] [id number] [address] IMAGING REPORT Signed PATIENT: HALEY PENALOZA MR#: [id number] : 2005 SEX: F AGE: 19 LOCATION: [facility] ORDER 28 STATUS: REG ER REPORT#: [id number] SERVICE REASON: LLQ abd pain r/o diverticulitis ORDERING PHYSICIAN: JORGE CARBONE PROCEDURE: ABD PEL W - CT ABDOMEN/PELVIS W/CONTRAST CT ABDOMEN WITH CONTRAST. CT PELVIS WITH CONTRAST INDICATION: Left lower abdominal pain TECHNIQUE: Routine transaxial images using 5 mm slice thickness were obtained after the intravenous infusion of 75 mL of Omnipaque 350 without adverse effects. Oral contrast was not administered. Rectal contrast was not administered. Coronal and sagittal reformatted images acquired for interpretation. CT was performed with one or more of the following dose reduction techniques: Automated exposure control, adjustment of the mA and/or kV according to patient size, or use of iterative reconstruction technique. COMPARISON: None FINDINGS: ABDOMEN: Heart size is normal. Visible lung bases are clear. The liver is normal in size and smooth in contour without lesions or biliary duct dilation. Diffuse low attenuation of the liver parenchyma suggests fatty change. The spleen is normal in size without lesions. The gallbladder appears normal. The pancreas appears normal without pancreatic duct dilation. The adrenal glands appear normal. Both kidneys appear unremarkable. Cortical nephrograms are symmetric and normal in appearance bilaterally. No evidence for intra-abdominal free air or organized fluid collection. No retrocrural, intraabdominal, or retroperitoneal lymphadenopathy identified. No aortic aneurysmal dilation or dissection identified. PELVIS: No evidence for free air or organized pelvic fluid collection. No significant pelvic adenopathy detected. Moderate rectosigmoid colonic stool burden. Terminal ileum appears normal. The appendix appears normal. The urinary bladder appears unremarkable. Visible osseous structures are intact. IMPRESSION: Hepatic steatosis and moderate rectosigmoid colonic stool burden, without evidence for any acute intra-abdominal or pelvic process, including no evidence for diverticulitis or colitis. DICTATED BY: SAMANTHA ALEXANDER MD DATE: 03/01/25 1532 ELECTRONICALLY SIGNED BY: SAMANTHA ALEXANDER MD DATE: 03/01/25 5742 [facility] [address] [place] [address] IMAGING REPORT Signed PATIENT: HALEY PENALOZA MR#: [id number] : 2005 SEX: F AGE: 19 LOCATION: [facility] ORDER 24 STATUS: REG ER REPORT#: [id number] SERVICE 24 REASON: R/O TORSION ORDERING PHYSICIAN: NUSRAT COLLINS DO PROCEDURE: PELVCOMP - US PELVIC NON-OB COMP ULTRASOUND OF THE PELVIS ULTRASOUND ABD VASCULAR LIMITED INDICATION: Pelvic pain COMPARISONS: None TECHNIQUE: Transabdominal real-time sonographic images were acquired earlier, and subsequently made available for review. FINDINGS: The uterus measures 8.2 x 2.2 x 4.4 cm. The uterus is normal in echotexture and contour. The endometrial thickness measures 2.0 mm. The slightly follicular right ovary measures 3.4 x 2.1 x 2.4 cm. The right ovary is normal in size, shape and echogenicity. No right adnexal masses demonstrated. Color Doppler flow is normal throughout the right ovary. Spectral Doppler analysis demonstrates a normal waveform pattern. The left ovary is surgically absent. No free pelvic fluid demonstrated. IMPRESSION: No acute pelvic abnormality noted. DICTATED BY: SAMANTHA ALEXANDER MD DATE: 03/01/25 1539 ELECTRONICALLY SIGNED BY: SAMANTHA ALEXANDER MD DATE: 03/01/25 1548 DX & DISP Disposition: Discharge Departure Impression: Primary Impression: Constipation Condition: Stable Scripts Polyethylene Glycol 3350 (Miralax) 17 Gram Powd.pack 17 GM PO DAILY for constipation, #20 PACKET 0 Refills Prov: JORGE CARBONE 03/01/25 Additional Instructions: Your blood work today is stable. Your ultrasound is normal. Your CT scan of the abdomen/pelvis reveals constipation. Your urinalysis does not show any evidence of infection. Please follow up with your primary care doctor for further evaluation. No need for emergent intervention at this time. Referrals: SELF,REFERRAL (PCP) Time of Disposition: 15:55 I have reviewed the case, and I agree with, Diagnosis and Plan I performed the substantive portion of the visit. I have reviewed and personally made and approve the management plan that is documented in the note by myself or the DACIA. I acknowledge for responsibility for the patient's joanne gement plan. JORGE CARBONE Mar 01, 2025 15:58 NUSRAT COLLINS DO Mar 01, 2025 18:10
[2025-03-01 16:11] VITALS: BP 124/71; PULSE 98; RESP 18; TEMP 98.4; O2SAT 99
== END 2025-03-01 16:13 | disposition home or self-care (01) ==
LOC: EDH 12:37
DX: K59.00 Constipation, unspecified (principal); E66.01 Morbid (severe) obesity due to excess calories; Z79.899 Other long term (current) drug therapy
CPT/HCPCS: 99285; 74177; 76856; 80076; 83735; 80048; 84702; 85025; 83605; 81001; 36415; Q9967 ×2